=== PATIENT | female | born 1985 | race Caucasian/White ===

== ENCOUNTER 2017-02-16 17:56 | Emergency (ER) | payer BC ==
--- NOTE | 2017-02-16 19:19 | DIAGNOSTIC IMAGING REPORT ---
PROCEDURE: XR FOOT 3 VIEWS - RIGHT INDICATION: Pain after injury. TECHNIQUE: Three views. COMPARISON: None. FINDINGS: There is soft tissue swelling over the dorsum of the right foot. Osseous structures and joint spaces are normal. IMPRESSION: 1. Soft tissue swelling. 2. Otherwise negative right foot.
--- NOTE | 2017-02-16 19:20 | ED CLINICAL REPORT ---
Clinical Report - Physicians/Mid Levels [facility] [address] [place] [address] 02/16/2017 17:59 [id number] Time Seen: 18:24; initial patient contact. Arrived- By private vehicle. HISTORY OF PRESENT ILLNESS Chief Complaint: Injury to the right foot. The injury happened yesterday. The patient sustained a light crush injury (stomped with a boot). Occurred at an athletic field. Patient is experiencing moderate pain. Patient denies injury to the head or neck. REVIEW OF SYSTEMS The patient complains of pain on weight bearing. She has had swelling, and tingling. No weakness, numbness or skin laceration. All systems otherwise negative, except as recorded above. PAST HISTORY Asthma. Migraine headaches. Medications: Albuterol-Ipratropium Inhalation, prn . Amitriptyline HCl Oral 10 mg, at bedtime. Allergies: PCN. SOCIAL HISTORY Never smoker. Occasional alcohol use. No drug use. ADDITIONAL NOTES The nursing notes have been reviewed. PHYSICAL EXAM Vital Signs: 02/16/2017 18:03 BP: 129/65. HR: 74. RR: 18. O2 saturation: 99%. Temp: 98.1 F. Pain level now: 7/10. Have been reviewed as normal. Appearance: Alert. Oriented X3. No acute distress. Skin: Skin intact. Skin warm and dry. Extremities: Right foot: mild erythema, moderate tenderness and swelling and medium sized ecchymosis located in the distal dorsal aspect of the mid foot. Neurovascular intact distally. No abrasion or deformity. No ankle injury. Foot and ankle exam otherwise negative. Extremities otherwise negative. Neuro, Vascular and Tendons: Vascular status intact. Sensation intact. Motor intact. Tendon function intact. Gait: Limping gait. Neuro: Oriented X 3. No motor deficit. No sensory deficit. LABS, X-RAYS, AND EKG Rt Foot X-ray: No fracture. Normal alignment. No bony lesion, air in the soft tissue or foreign body. Soft tissue swelling. Views: 3 view foot series. Technique: good. The X-rays were independently viewed by me and interpreted contemporaneously by me. Prior films were not available for comparison. Interpretation time: 19:19. PROGRESS AND PROCEDURES Disposition: Discharged home in good and improved condition. Condition: good. CLINICAL IMPRESSION Single contusion with soft tissue hematoma to the right foot. INSTRUCTIONS Apply ice for 20 minutes four times a day until better. Don't apply ice directly to skin. Do not work tomorrow. Your Current Medications: CONTINUE TAKING THE FOLLOWING MEDICATIONS: Albuterol-Ipratropium Inhalation : prn. Amitriptyline HCl Oral : 10 mg at bedtime. Prescription Medications: Diclofenac 50 mg tablets: take 1 tablet orally every 8 hours as needed for pain or stiffness. Dispense thirty (30). No refill. Follow-up: Follow up with your doctor in about two days. Call for an appointment. Screening today revealed the patient's blood pressure to be in the pre-hypertensive range. The patient should follow up with a primary care provider for blood pressure management. (Electronically signed by Tomás Mcgrath Dr. 02/16/2017 21:30)
--- NOTE | 2017-02-16 19:20 | ED ORDER SUMMARY ---
..... Patient: HORACE KRISHNA OrderSheet [facility] VisitID: [id number] [address] [place] [address] 31y, F Registration Date/Time: 02/16/2017 ORDER SHEET Weight: 97.5 kg (stated) Allergies: PCN GENERAL ORDERS: Foot 3V Right Urgent (18:31 02/16/2017 Austyn Quintanilla) (Ack 18:37 TBergley) (18:43 TBergley) MEDICATION ORDERS: Ibuprofen PO 800 mg (NOW) (18:31 02/16/2017 Austyn Quintanilla) (18:40 Anmol R.N.) IV FLUIDS: ORDER SHEET NOTES: [Electronically signed by Yari Gomes R.N. (19:58 02/16/2017)] [Electronically signed by Tomás Mcgrath Dr. (21:30 02/16/2017)] [Electronically locked/signed by Yari Gomes R.N. (19:58 02/16/2017)]
--- NOTE | 2017-02-16 19:20 | ED CLINICAL REPORT ---
Clinical Report - Physicians/Mid Levels [facility] [address] [place] [address] 02/16/2017 17:59 [id number] Time Seen: 18:24; initial patient contact. Arrived- By private vehicle. HISTORY OF PRESENT ILLNESS Chief Complaint: Injury to the right foot. The injury happened yesterday. The patient sustained a light crush injury (stomped with a boot). Occurred at an athletic field. Patient is experiencing moderate pain. Patient denies injury to the head or neck. REVIEW OF SYSTEMS The patient complains of pain on weight bearing. She has had swelling, and tingling. No weakness, numbness or skin laceration. All systems otherwise negative, except as recorded above. PAST HISTORY Asthma. Migraine headaches. Medications: Albuterol-Ipratropium Inhalation, prn . Amitriptyline HCl Oral 10 mg, at bedtime. Allergies: PCN. SOCIAL HISTORY Never smoker. Occasional alcohol use. No drug use. ADDITIONAL NOTES The nursing notes have been reviewed. PHYSICAL EXAM Vital Signs: 02/16/2017 18:03 BP: 129/65. HR: 74. RR: 18. O2 saturation: 99%. Temp: 98.1 F. Pain level now: 7/10. Have been reviewed as normal. Appearance: Alert. Oriented X3. No acute distress. Skin: Skin intact. Skin warm and dry. Extremities: Right foot: mild erythema, moderate tenderness and swelling and medium sized ecchymosis located in the distal dorsal aspect of the mid foot. Neurovascular intact distally. No abrasion or deformity. No ankle injury. Foot and ankle exam otherwise negative. Extremities otherwise negative. Neuro, Vascular and Tendons: Vascular status intact. Sensation intact. Motor intact. Tendon function intact. Gait: Limping gait. Neuro: Oriented X 3. No motor deficit. No sensory deficit. LABS, X-RAYS, AND EKG Rt Foot X-ray: No fracture. Normal alignment. No bony lesion, air in the soft tissue or foreign body. Soft tissue swelling. Views: 3 view foot series. Technique: good. The X-rays were independently viewed by me and interpreted contemporaneously by me. Prior films were not available for comparison. Interpretation time: 19:19. PROGRESS AND PROCEDURES Disposition: Discharged home in good and improved condition. Condition: good. CLINICAL IMPRESSION Single contusion with soft tissue hematoma to the right foot. INSTRUCTIONS Apply ice for 20 minutes four times a day until better. Don't apply ice directly to skin. Do not work tomorrow. Your Current Medications: CONTINUE TAKING THE FOLLOWING MEDICATIONS: Albuterol-Ipratropium Inhalation : prn. Amitriptyline HCl Oral : 10 mg at bedtime. Prescription Medications: Diclofenac 50 mg tablets: take 1 tablet orally every 8 hours as needed for pain or stiffness. Dispense thirty (30). No refill. Follow-up: Follow up with your doctor in about two days. Call for an appointment. Screening today revealed the patient's blood pressure to be in the pre-hypertensive range. The patient should follow up with a primary care provider for blood pressure management. (Electronically signed by Tomás Mcgrath Dr. 02/16/2017 21:30)
--- NOTE | 2017-02-16 19:20 | ED ORDER SUMMARY ---
..... Patient: HORACE KRISHNA OrderSheet [facility] VisitID: [id number] [address] [place] [address] 31y, F Registration Date/Time: 02/16/2017 ORDER SHEET Weight: 97.5 kg (stated) Allergies: PCN GENERAL ORDERS: Foot 3V Right Urgent (18:31 02/16/2017 Austyn Quintanilla) (Ack 18:37 TBergley) (18:43 TBergley) MEDICATION ORDERS: Ibuprofen PO 800 mg (NOW) (18:31 02/16/2017 Austyn Quintanilla) (18:40 Anmol R.N.) IV FLUIDS: ORDER SHEET NOTES: [Electronically signed by Yari Gomes R.N. (19:58 02/16/2017)] [Electronically signed by Tomás Mcgrath Dr. (21:30 02/16/2017)] [Electronically locked/signed by Yari Gomes R.N. (19:58 02/16/2017)]
--- NOTE | 2017-02-16 19:20 | ED NURSING NOTES ---
Clinical Report - Nurses [facility] [address] [place] [address] 02/16/2017 17:59 [id number] TRI[facility] Triage time 18:03. Acuity: LEVEL 3. Chief Complaint: INJURY TO RIGHT FOOT. Alert. No acute distress. DRE COMA SCORE: Dre Coma Scale: 15- eyes open spontaneously (4); best verbal response- oriented x 4 (5); best motor response- obeys commands (6). --18:09 Yari Gomes R.N. 18:03 02/16/17. BP: 129/65 taken on the left arm, while sitting. HR: 74. RR: 18. O2 saturation: 99%. Temp: 98.1 F. Pain level now: 05/05. --18:09 Yari Gomes R.N. Weight: 97.5 kg stated. Height/Length: 65 inches Per Patient. BMI: 35.8. --18:06 Yari Gomes R.N. Medications Amitriptyline HCl Oral 10 mg, at bedtime. --18:07 Yari Gomes R.N. Albuterol-Ipratropium Inhalation, prn . --18:07 Yari Gomes R.N. Medication/allergy information source: the patient. --18:09 Yari Gomes R.N. Allergies PCN. --18:07 Yari Gomes R.N. History Arrived by private vehicle. Historian: patient. Primary physician ([facility]). ( drove self). This occurred last night. Mechanism of injury: a single blow (person stepped on rt foot). 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 PAST MEDICAL HX: Asthma. Tetanus status: up-to-date. Uses an intrauterine device. ( migraines). SURGERY HX: Appendectomy. Tonsillectomy. SOCIAL HX: Never smoker. Occasional alcohol use. No drug use. FALL RISK ASSESSMENT: Fall risk assessment completed. No fall risk identified. NUTRITIONAL RISK ASSESSMENT: The nutritional risk assessment revealed no deficiencies. FUNCTIONAL ASSESSMENT: Functional assessment: no impairments noted. LEARNING NEEDS ASSESSMENT: The learning needs assessment revealed no barriers. --18:09 Yari Gomes R.N. No numbness or tingling. --18:09 Yari Gomes R.N. Interventions ID band on patient. To room. --18:09 Yari Gomes R.N. PHYSICAL ASSESSMENT Ambulatory to room. GENERAL / NEURO / PSYCH: Oriented X 4. Alert. Appears in pain and anxious. EXTREMITIES: Limited ROM present. Pain with weight bearing. Right foot. SKIN: Skin is warm and dry. Bruises noted on the right foot. --18:09 Yari Gomes R.N. NURSING PROGRESS NOTES Cold pack applied. Extremity elevated. Two patient identifiers checked. Call light placed in reach. Side rails up x 1. Bed placed in lowest position. Brakes of bed on. Patient ready for evaluation. --18:09 Yari Gomes R.N. 18:40 02/16/2017 Ibuprofen PO 800 mg given. Allergies verified and confirmed 5 rights. --18:40 Yari Gomes R.N. DISPOSITION / DISCHARGE 19:32 02/16/17. Condition at departure: unchanged. No learning barriers present. Discharge instructions provided and reviewed with the patient. Reviewed medication(s) side effects, precautions, dosing and course information. Prescription(s) given to the patient. Patient verbalized understanding. Written instructions provided in Romanian. The patient was discharged home. She left the Emergency Department ambulatory and via private vehicle. Patient driving. Medication list reviewed and validated. --19:32 Yari Gomes R.N. 19:30 02/16/17. BP: 128/74. HR: 75. RR: 20. O2 saturation: 100%. Temp: deferred. Pain level now: 02/03. 18:03 02/16/17. BP: 129/65 taken on the left arm, while sitting. HR: 74. RR: 18. O2 saturation: 99%. Temp: 98.1 F. Pain level now: 05/05. --19:32 Yari Gomes R.N. Locked/Released at 02/16/2017 19:58 by Yari Gomes R.N.
--- NOTE | 2017-02-16 19:20 | ED NURSING NOTES ---
Clinical Report - Nurses [facility] [address] [place] [address] 02/16/2017 17:59 [id number] TRIAGE Triage time 18:03. Acuity: LEVEL 3. Chief Complaint: INJURY TO RIGHT FOOT. Alert. No acute distress. DRE COMA SCORE: Dre Coma Scale: 15- eyes open spontaneously (4); best verbal response- oriented x 4 (5); best motor response- obeys commands (6). --18:09 Yari Gomes R.N. 18:03 02/16/17. BP: 129/65 taken on the left arm, while sitting. HR: 74. RR: 18. O2 saturation: 99%. Temp: 98.1 F. Pain level now: 05/05. --18:09 Yari Gomes R.N. Weight: 97.5 kg stated. Height/Length: 65 inches Per Patient. BMI: 35.8. --18:06 Yari Gomes R.N. Medications Amitriptyline HCl Oral 10 mg, at bedtime. --18:07 Yari Gomes R.N. Albuterol-Ipratropium Inhalation, prn . --18:07 Yari Gomes R.N. Medication/allergy information source: the patient. --18:09 Yari Gomes R.N. Allergies PCN. --18:07 Yari Gomes R.N. History Arrived by private vehicle. Historian: patient. Primary physician ([facility]). ( drove self). This occurred last night. Mechanism of injury: a single blow (person stepped on rt foot). 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 PAST MEDICAL HX: Asthma. Tetanus status: up-to-date. Uses an intrauterine device. ( migraines). SURGERY HX: Appendectomy. Tonsillectomy. SOCIAL HX: Never smoker. Occasional alcohol use. No drug use. FALL RISK ASSESSMENT: Fall risk assessment completed. No fall risk identified. NUTRITIONAL RISK ASSESSMENT: The nutritional risk assessment revealed no deficiencies. FUNCTIONAL ASSESSMENT: Functional assessment: no impairments noted. LEARNING NEEDS ASSESSMENT: The learning needs assessment revealed no barriers. --18:09 Yari Gomes R.N. No numbness or tingling. --18:09 Yari Gomes R.N. Interventions ID band on patient. To room. --18:09 Yari Gomes R.N. PHYSICAL ASSESSMENT Ambulatory to room. GENERAL / NEURO / PSYCH: Oriented X 4. Alert. Appears in pain and anxious. EXTREMITIES: Limited ROM present. Pain with weight bearing. Right foot. SKIN: Skin is warm and dry. Bruises noted on the right foot. --18:09 Yari Gomes R.N. NURSING PROGRESS NOTES Cold pack applied. Extremity elevated. Two patient identifiers checked. Call light placed in reach. Side rails up x 1. Bed placed in lowest position. Brakes of bed on. Patient ready for evaluation. --18:09 Yari Gomes R.N. 18:40 02/16/2017 Ibuprofen PO 800 mg given. Allergies verified and confirmed 5 rights. --18:40 Yari Gomes R.N. DISPOSITION / DISCHARGE 19:32 02/16/17. Condition at departure: unchanged. No learning barriers present. Discharge instructions provided and reviewed with the patient. Reviewed medication(s) side effects, precautions, dosing and course information. Prescription(s) given to the patient. Patient verbalized understanding. Written instructions provided in Upper Sorbian. The patient was discharged home. She left the Emergency Department ambulatory and via private vehicle. Patient driving. Medication list reviewed and validated. --19:32 Yari Gomes R.N. 19:30 02/16/17. BP: 128/74. HR: 75. RR: 20. O2 saturation: 100%. Temp: deferred. Pain level now: 02/03. 18:03 02/16/17. BP: 129/65 taken on the left arm, while sitting. HR: 74. RR: 18. O2 saturation: 99%. Temp: 98.1 F. Pain level now: 05/05. --19:32 Yari Gomes R.N. Locked/Released at 02/16/2017 19:58 by Yari Gomes R.N.
--- NOTE | 2017-02-16 21:31 | ED MAR SUMMARY ---
..... Medication Administration Record [facility] [address] [place] [address] Patient: HORACE KRISHNA Visit ID: [id number] 31y, F Weight: 97.5 kg Height/Length: 65 in BMI: 35.8 ALLERGIES: PCN Given 18:40 02/16/2017 Yari Gomes R.N. Medication Administered: IBUPROFEN [PO], Dose: 800 mg PO. Medication Ordered: Ibuprofen PO 800 mg (NOW).
--- NOTE | 2017-02-16 21:31 | ED MAR SUMMARY ---
..... Medication Administration Record [facility] [address] [place] [address] Patient: HORACE KRISHNA Visit ID: [id number] 31y, F Weight: 97.5 kg Height/Length: 65 in BMI: 35.8 ALLERGIES: PCN Given 18:40 02/16/2017 Yari Gomes R.N. Medication Administered: IBUPROFEN [PO], Dose: 800 mg PO. Medication Ordered: Ibuprofen PO 800 mg (NOW).
--- NOTE | 2017-02-16 21:31 | ED MED RECONCILIATION SUMMARY ---
Patient: HORACE KRISHNA Medication Reconciliation Report [facility]erg[facility] VisitID: [id number] [address] [place] [address] 31y, F Registration Date/Time: 02/16/2017 Weight: 97.5 kg Height/Length: 65 in. BMI: 35.8 ALLERGIES: PCN The patient's Home Medications are listed below: CONTINUE TAKING THE FOLLOWING MEDICATIONS: Albuterol-Ipratropium Inhalation, prn Amitriptyline HCl Oral 10 mg, at bedtime The source(s) of the original Home Medication information: patient The following Medications were given to the patient in the Emergency Department: Ibuprofen [PO] PO 800 mg, administered: 02/16/2017 6:40:00 PM The following Medications were prescribed to the patient: Diclofenac 50 mg tablets: take 1 tablet orally every 8 hours as needed for pain or stiffness. Dispense thirty (30). No refill. -- Tomás Mcgrath Dr.
--- NOTE | 2017-02-16 21:31 | ED DISCHARGE INSTRUCTIONS ---
Patient: HORACE KRISHNA General Instructions [facility] VisitID: [id number] [place] [address] 31y, F Registration Date/Time: 02/16/2017 Single contusion with soft tissue hematoma to the right foot. INSTRUCTIONS Apply ice for 20 minutes four times a day until better. Don't apply ice directly to skin. Do not work tomorrow. Your Current Medications: CONTINUE TAKING THE FOLLOWING MEDICATIONS: Albuterol-Ipratropium Inhalation : prn. Amitriptyline HCl Oral : 10 mg at bedtime. Prescription Medications: Diclofenac 50 mg tablets: take 1 tablet orally every 8 hours as needed for pain or stiffness. Dispense thirty (30). No refill. Follow-up: Follow up with your doctor in about two days. Call for an appointment. Screening today revealed the patient's blood pressure to be in the pre-hypertensive range. The patient should follow up with a primary care provider for blood pressure management. ADDITIONAL INFORMATION Contusion,Soft Tissue You have a CONTUSION, which is a bruise with swelling and some bleeding under the skin. There are no broken bones. This injury takes a few days to a few weeks to heal. Home Care: 1) Keep the injured part elevated to reduce pain and swelling. This is especially important during the first 48 hours. 2) Make an ice pack (ice cubes in a plastic bag, wrapped in a towel) and apply for 20 minutes every 1-2 hours the first day. Continue this 3-4 times a day until the pain and swelling goes away. 3) You may use acetaminophen (Tylenol) or ibuprofen (Motrin, Advil) to control pain, unless another pain medicine was prescribed. [ NOTE : If you have chronic liver or kidney disease or ever had a stomach ulcer or GI bleeding, talk with your doctor before using these medicines.] Follow Up with your doctor or this facility if you are not improving within the next THREE days. [NOTE: If X-rays were taken, they will be reviewed by a radiologist. You will be notified of any new findings that may affect your care.] Get Prompt Medical Attention if any of the following occur: -- Pain or swelling increases -- Injured arm or leg becomes cold, blue, numb or tingly -- Redness, warmth or drainage from the skin You have been given the following additional information: Contusion, Soft Tissue Do not work tomorrow. (Electronically signed by Tomás Mcgrath Dr. 02/16/2017 21:30)
--- NOTE | 2017-02-16 21:31 | ED MED RECONCILIATION SUMMARY ---
Patient: HORACE KRISHNA Medication Reconciliation Report [facility] VisitID: [id number] [address] [place] [address] 31y, F Registration Date/Time: 02/16/2017 Weight: 97.5 kg Height/Length: 65 in. BMI: 35.8 ALLERGIES: PCN The patient's Home Medications are listed below: CONTINUE TAKING THE FOLLOWING MEDICATIONS: Albuterol-Ipratropium Inhalation, prn Amitriptyline HCl Oral 10 mg, at bedtime The source(s) of the original Home Medication information: patient The following Medications were given to the patient in the Emergency Department: Ibuprofen [PO] PO 800 mg, administered: 02/16/2017 6:40:00 PM The following Medications were prescribed to the patient: Diclofenac 50 mg tablets: take 1 tablet orally every 8 hours as needed for pain or stiffness. Dispense thirty (30). No refill. -- Tomás Mcgrath Dr.
== END 2017-02-16 19:30 | disposition home or self-care (01) ==
LOC: ED SRH 17:56
DX: S90.31XA Contusion of right foot, initial encounter (principal); W50.0XXA Accidental hit or strike by another person, initial encounter; Y93.79 Activity, other specified sports and athletics; Y92.328 Other athletic field as the place of occurrence of the external cause; Y99.9 Unspecified external cause status; J45.909 Unspecified asthma, uncomplicated; Z79.899 Other long term (current) drug therapy; Z88.0 Allergy status to penicillin